=== PATIENT | male | born 1990 | race Caucasian/White ===

== ENCOUNTER 2016-12-25 17:48 | Emergency (ER) | payer BC ==
[~2016-12-25] VITALS: Ht 180.3 cm; Wt 117.9 kg
--- NOTE | 2016-12-25 17:58 | NUR ---
awaiting for MD to see
--- NOTE | 2016-12-25 17:58 | NUR ---
feeling ligheaded and anxious x 2 days, worsening 1 hr [employer]
[2016-12-25] MEDS ORDERED: LORAZEPAM INJ 2 MG/ML VIAL IM STA (18:08)
[2016-12-25] MEDS ORDERED: LORAZEPAM INJ 2 MG/ML VIAL ONE (18:20)
--- NOTE | 2016-12-25 18:28 | NUR ---
PT MEDICATED ORDER
--- NOTE | 2016-12-25 18:33 | NUR ---
Patient discharged to home in stable condition. Written and verbal after care instructions given. Patient verbalizes understanding of instruction.
[2016-12-25 18:36] VITALS: BP 115/70
== END 2016-12-25 18:36 | disposition home or self-care (01) ==
LOC: ER 17:49
DX: F41.0 Panic disorder [episodic paroxysmal anxiety] (principal); Z88.2 Allergy status to sulfonamides; F31.9 Bipolar disorder, unspecified
CPT/HCPCS: 96372; 99283; A4606; J2060; Z7610